=== PATIENT | female | born 1995 | race Caucasian/White ===

== ENCOUNTER 2019-02-05 09:31 | Emergency (ER) | payer OTHER ==
[2019-02-05 10:43] LABS: ABS Lymphocytes 1.7 10^3/ul (1.0-4.8); ABS Monocytes 0.5 10^3/ul (0-0.8); ABS Neutrophils 5.6 10^3/ul (1.5-7.7); Eosinophil % 0.6 %; Hematocrit 43 % (35-47); Hemoglobin 14.7 g/dL (12.0-16.0); Lymphocyte % 21.6 %; Mean Corpuscular HGB Conc 34 g/dL (31-36); Mean Corpuscular Hemoglobin 29 pg (27-31); Mean Corpuscular Volume 85 fL (80-97); Mean Platelet Volume 8.1 fL (7.4-10.4); Platelet Count 251 10^3/uL (150-450); Red Blood Count 5.05 10^6 /uL (3.70-4.87); Red Cell Distribution Width 14 % (10-15); White Blood Count 7.8 10^3/uL (3.5-10.8)
--- NOTE | 2019-02-05 11:06 | ED ---
GI/ HPI - HPI Summary HPI Summary: 23-year-old female presents with right lower quadrant for the past 2 days. She states pain has gotten worse. She denies any urinary symptoms. No nausea or vomiting. She admits to a decrease in appetite. No fevers. no diarrhea or onstipation. Denies any abnormal vaginal discharge. Does have an IUD. Has been having back pain for the past 4 months. is following up with chiropractor about such. Pain is side of back. No loss of bowel or bladder. No saddle anesthesia. No numbness or tingling. No pains into legs. - History of Current Complaint Chief Complaint: EDAbdPain Time Seen by Provider: 02/05/19 10:40 Stated Complaint: LOWER BACK AND ABDOMINAL PAIN PER PT Hx Last Menstrual Period: 2 WEEKS AGO Pain Intensity: 7 - Allergy/Home Medications Allergies/Adverse Reactions: Allergies Allergy/AdvReac Type Severity Reaction Status Date / Time Cefaclor [From [facility]] Allergy Unknown Unknown Verified 02/05/19 09:37 Reaction Details Home Medications: Home Medications BuPROPion XL* [Bupropion XL*] 300 mg PO DAILY 02/05/19 [History Confirmed ] PMH/Surg Hx/FS Hx/Imm Hx Endocrine/Hematology History: Denies: Hx Anticoagulant Therapy Respiratory History: Denies: Hx Asthma Infectious Disease History: No Infectious Disease History: Denies: Traveled Outside the [place] in Last 30 Days - Family History Known Family History: Positive: Non-Contributory - Social History Alcohol Use: Occasionally Substance Use Type: Reports: None Smoking Status (MU): Never Smoked Tobacco Review of Systems Negative: Fever Negative: Chest Pain Negative: Shortness Of Breath Positive: Abdominal Pain. Negative: Vomiting, Diarrhea, Nausea Positive: Myalgia - back pain All Other Systems Reviewed And Are Negative: Yes Physical Exam Triage Information Reviewed: Yes Vital Signs On Initial Exam: Initial Vitals Temp Pulse Resp BP Pulse Ox 97.4 F 62 18 157/89 92 02/05/19 09:33 02/05/19 09:33 02/05/19 09:33 02/05/19 09:33 02/05/19 09:33 Vital Signs Reviewed: Yes Appearance: Positive: Well-Appearing Skin: Positive: Warm, Dry Head/Face: Positive: Normal Head/Face Inspection Eyes: Positive: Normal, Conjunctiva Clear ENT: Positive: Pharynx normal Respiratory/Lung Sounds: Positive: Clear to Auscultation, Breath Sounds Present Cardiovascular: Positive: Normal, RRR Abdomen Description: Positive: Soft, Other: - tenderness in RLQ, rebound present Bowel Sounds: Positive: Present Musculoskeletal: Positive: Normal Neurological: Positive: Normal Psychiatric: Positive: Normal Procedures - Sedation Patient Received Moderate/Deep Sedation with Procedure: No Diagnostics - Vital Signs Vital Signs Temp Pulse Resp BP Pulse Ox 02/05/19 09:33 97.4 F 62 18 157/89 92 - Laboratory Lab Results: Lab Results 02/05/19 Range/Units 10:35 WBC 7.8 (3.5-10.8) 10^3/uL RBC 5.05 H (3.70-4.87) 10^6 /uL Hgb 14.7 (12.0-16.0) g/dL Hct 43 (35-47) % MCV 85 (80-97) fL MCH 29 (27-31) pg MCHC 34 (31-36) g/dL RDW 14 (10-15) % Plt Count 251 (150-450) 10^3/uL MPV 8.1 (7.4-10.4) fL Neut % (Auto) 71.6 % Lymph % (Auto) 21.6 % [place] % (Auto) 6.0 % Eos % (Auto) 0.6 % Baso % (Auto) 0.2 % Absolute Neuts (auto) 5.6 (1.5-7.7) 10^3/ul Absolute Lymphs (auto) 1.7 (1.0-4.8) 10^3/ul Absolute Monos (auto) 0.5 (0-0.8) 10^3/ul Absolute Eos (auto) 0.0 (0-0.6) 10^3/ul Absolute Basos (auto) 0.0 (0-0.2) 10^3/ul Absolute Nucleated RBC 0.0 10^3/ul Nucleated RBC % 0.0 Result Diagrams: 02/05/19 10:35 02/05/19 10:35 Lab Statement: Any lab studies that have been ordered have been reviewed, and results considered in the medical decision making process. - CT abd CT Interpretation Completed By: Radiologist Summary of CT Findings: IMPRESSION: IUD in place. Normal appendix. No other masses or fluid collections are noted. No obstructive uropathy is noted - Ultrasound abd Ultrasound Interpretation Completed By: Radiologist Summary of Ultrasound Findings: IMPRESSION: IUD in place. Complex right ovarian follicle measuring up to 1.7 cm. Re-Evaluation - Re-Evaluation First Eval Re-Evaluation Time: 12:34 Change: Improved - feeling better, discussed u/s. will location of pain will still get CT GIGU Course/Dx - Course Course Of Treatment: 23-year-old female presents with right lower quadrant for the past 2 days. She states pain has gotten worse. She denies any urinary symptoms. No nausea or vomiting. She admits to a decrease in appetite. No fevers. no diarrhea or onstipation. Denies any abnormal vaginal discharge. Does have an IUD. Has been having back pain for the past 4 months. is following up with chiropractor about such. Pain is side of back. No loss of bowel or bladder. No saddle anesthesia. No numbness or tingling. No pains into legs. On exam has tenderness in the right lower quadrant with rebound tenderness. wbc normal. crp normal. urine no infection. transvaginal u/s shows complex right ovarian cyst. CT shows normal appendix. will have follow up with primary or appointment coordinator. patient understand and agrees with plan. - Diagnoses Differential Diagnoses - Female: Appendicitis, Ovarian Cyst, Urinary Tract Infection Provider Diagnoses: Ovarian cyst Discharge ED - Sign-Out/Discharge Documenting (check all that apply): Patient Departure - Discharge Plan Condition: Good Disposition: HOME Patient Education Materials: Ovarian Cyst (ED) Referrals: [facility] [place] PHYSICIAN REFERRAL [Outside] Additional Instructions: Take Tylenol or ibuprofen every 6 hours for pain Apply heat Follow up with obgyn or primary Return to ED if develop any new or worsening symptoms - Billing Disposition and Condition Condition: GOOD Disposition: Home
[2019-02-05] MEDS: Ketorolac INJ* 30 MG/ML 1 ML VIAL IV PUSH ONE (11:07)
[2019-02-05] MEDS: NS 0.9% 1000 ML** 1,000 ML IV ONE (11:07)
[2019-02-05 11:10] LABS: ALT 15 U/L (7-52); AST 15 U/L (13-39); Albumin 4.6 g/dL (3.2-5.2); Albumin/Globulin Ratio 1.4 (1-3); Alkaline Phosphatase 56 U/L (34-104); Anion Gap 6 mmol/L (2-11); BUN/Creatinine Ratio 11.1 (8-20); Blood Urea Nitrogen 11 mg/dL (6-24); C Reactive Protein 1.37 mg/L (<8.01); CO2 Carbon Dioxide 27 mmol/L (22-32); Calcium 9.7 mg/dL (8.6-10.3); Chloride 105 mmol/L (101-111); EGFR African American 83.4 (>60); EGFR Non-African American 68.9 (>60); Globulin 3.2 g/dL (2-4); Glucose 92 mg/dL (70-100); Potassium 4.3 mmol/L (3.5-5.0); Sodium 138 mmol/L (135-145); Total Protein 7.8 g/dL (6.4-8.9)
[2019-02-05 11:16] LABS: HCG Pregnancy < 0.60 mIU/mL
[2019-02-05 11:25] LABS: Urine Appearance Clear; Urine Bilirubin Negative (Negative); Urine Blood 1+ (Negative); Urine Color Straw; Urine Glucose Negative (Negative); Urine Ketones Negative (Negative); Urine Nitrite Negative (Negative); Urine Protein Negative (Negative); Urine Specific Gravity 1.006 (1.010-1.030); Urine Urobilinogen Negative (Negative)
[2019-02-05 11:27] LABS: Urine Bacteria Absent (Absent); Urine Red Blood Cell Trace(0-2/hpf) (Absent); Urine Squamous Epithelial Cell Present (Absent); Urine White Blood Cell Absent (Absent)
[2019-02-05] MEDS: Iohexol 300* (CONTRAST) 10 ML SDV IV ONE (14:17)
[2019-02-05 15:16] VITALS: BP 133/50
== END 2019-02-05 15:09 | disposition home or self-care (01) ==
LOC: ED 09:31
DX: N83.201 Unspecified ovarian cyst, right side (principal); Z79.899 Other long term (current) drug therapy; Z88.1 Allergy status to other antibiotic agents
CPT/HCPCS: 36415; 74177; 76830; 80053; 81003; 81015; 83605; 83690; 84702; 85025; 86140; 96361; 96374; 99282; J1885; Q9967